=== PATIENT | female | born 1990 | race African-American/Black ===

== ENCOUNTER 2017-02-05 02:57 | Emergency (ER) | payer MEDICAID ==
[~2017-02-05] VITALS: Ht 160 cm; Wt 78.0 kg
[2017-02-05] MEDS ORDERED: KETOROLAC 60MG/2ML VIAL IM ONE (06:30)
[2017-02-05] MEDS ORDERED: AZITHROMYCIN 500 MG TABLET PO ONE (06:45)
[2017-02-05] MEDS ORDERED: CEFTRIAXONE SODIUM 250 MG/VIAL IM ONE (06:45)
[2017-02-05] MEDS ORDERED: LIDOCAINE HCL 1% 20ML VIAL (Pyxis) INJ MC ONE (07:15)
[2017-02-05 08:00] VITALS: BP 131/99
[2017-02-05] MEDS ORDERED: ONDANSETRON HCL 4MG TABLET PO ONE (08:00)
== END 2017-02-05 08:00 | disposition home or self-care (01) ==
LOC: ER 02:58
DX: A74.9 Chlamydial infection, unspecified (principal); A54.9 Gonococcal infection, unspecified
CPT/HCPCS: 87070; 96372; 99284; J0696; J1885; J3490; Q0162